=== PATIENT | female | born 1950 | race Caucasian/White ===

== ENCOUNTER 2016-05-25 23:17 | Inpatient (IN) | payer MEDICARE, BC ==
[~2016-05-25] VITALS: Ht 152.4 cm; Wt 51.0 kg
[2016-05-25] MEDS ORDERED: ALPR-340 PO (23:42)
[2016-05-25] MEDS ORDERED: DICL100G5 TP (23:42)
[2016-05-25] MEDS ORDERED: GABA-529 PO (23:42)
[2016-05-25] MEDS ORDERED: THEO100C PO (23:42)
[2016-05-25] MEDS ORDERED: MONT10TA24 PO (23:42)
[2016-05-25] MEDS ORDERED: TIOT185 IH (23:42)
[2016-05-25] MEDS ORDERED: LOSA50TA2 PO (23:42)
[2016-05-25] MEDS ORDERED: NAPR500T3 PO (23:42)
[2016-05-25] MEDS ORDERED: ASPI-1061 PO (23:42)
[2016-05-25] MEDS ORDERED: TOLT2CAP4 PO (23:42)
[2016-05-25] MEDS ORDERED: VERA-6 PO (23:42)
[2016-05-25] MEDS ORDERED: AMIT25TA9 PO (23:42)
[2016-05-26 00:26] LABS: BASOPHILS # (AUTO) 0.01 K/uL (0.00-0.20); BASOPHILS % (AUTO) 0.1 % (0.0-2.0); EOSINOPHILS # (AUTO) 0.01 K/uL (0.00-0.70); EOSINOPHILS % (AUTO) 0.14 % (1.0-6.0); HEMOGLOBIN 13.8 g/dL (12.0-16.0); LYMPHOCYTES # (AUTO) 1.5 K/uL (1.0-4.8); LYMPHOCYTES % (AUTO) 14.1 % (22.0-44.0); MEAN CORPUSCULAR HEMOGLOBIN 31.8 pg (26.0-34.0); MEAN CORPUSCULAR HGB CONC 32.8 G/dL (31.0-37.0); MEAN CORPUSCULAR VOLUME 97 fL (80-100); MONOCYTES # (AUTO) 0.9 K/uL (0.1-1.0); MONOCYTES % (AUTO) 8.4 % (2.0-9.0); NEUTROPHILS # (AUTO) 8.4 K/uL (1.8-7.7); NEUTROPHILS % (AUTO) 77.3 % (40.0-70.0); PLATELET COUNT (AUTO) 251 K/uL (150-450); RED BLOOD CELL COUNT(AUTO) 4.33 MIL/uL (4.00-5.20); RED CELL DISTRIBUTION WIDTH 12.4 % (11.5-14.5); WHITE BLOOD COUNT (AUTO) 10.8 K/uL (4.5-11.0)
[2016-05-26 00:27] LABS: APPEARANCE,URINE CLEAR (CLEAR); GLUCOSE, URINE (UA) NEGATIVE (NEGATIVE); KETONES,URINE NEGATIVE (NEGATIVE); LEUKOCYTE ESTERASE ,URINE NEGATIVE (NEGATIVE); OCCULT BLOOD,URINE NEGATIVE (NEGATIVE); PH,URINE 6.5 (5.0-8.0); PROTEIN,URINE NEGATIVE (NEGATIVE)
[2016-05-26] MEDS ORDERED: MethylPREDNISolone SOD SUCC 125 MG/2 ML VIAL IVP ONE (00:30)
[2016-05-26] MEDS ORDERED: IPRATROPIUM BROMIDE 0.5 MG/2.5 ML NEB SOLUTION NEB ONE ×2 (00:30→04:15)
[2016-05-26] MEDS ORDERED: ALBUTEROL SULFATE 2.5 MG/0.5 ML NEB SOLUTION NEB ONE (00:30)
[2016-05-26 00:38] LABS: ANION GAP 6 mmol/L (8-16); CARBON DIOXIDE 33 mmol/L (22-29); CHLORIDE 90 mmol/L (98-107); CREATININE 0.59 mg/dL (0.60-1.30); GLOMERULAR FILTR. RATE CALC > 60 mL/min (>60); POTASSIUM 3.3 mmol/L (3.5-5.1); SODIUM SERUM 129 mmol/L (136-145); UREA NITROGEN, BLOOD 12 mg/dL (7-18)
[2016-05-26 00:43] LABS: ALANINE AMINOTRANSFERASE 30 U/L (12-78); ALBUMIN 3.7 g/dL (3.4-5.0); ASPARTATE AMINOTRANSFERASE 26 U/L (15-37); BILIRUBIN,TOTAL 0.2 mg/dL (0.1-1.0); TOTAL PROTEIN, SERUM 6.7 g/dL (6.4-8.2)
[2016-05-26 00:47] LABS: RBC,URINE 0-2 /HPF (0-2); WBC,URINE 0-2 /HPF (0-5)
[2016-05-26] MEDS ORDERED: POTASSIUM CHLORIDE 20 MEQ ER TABLET PO ONE (01:15)
[2016-05-26] MEDS ORDERED: LORazepam 2 MG/ML VIAL IVP ONE (01:30)
[2016-05-26] MEDS ORDERED: ONDANSETRON HCL 4 MG/2 ML VIAL IVP ONE (01:30)
[2016-05-26] MEDS ORDERED: CefTRIAXone 1 GM/DEXTROSE 50 ML IV ONE (02:30)
[2016-05-26] MEDS ORDERED: AZITHROMYCIN 500 MG/NS 250 ML IV ONE (02:30)
[2016-05-26] MEDS ORDERED: 0.9% SODIUM CHLORIDE 10 ML SYRINGE IVP PRN ×2 (03:00→17:15)
[2016-05-26] MEDS ORDERED: ACETAMINOPHEN 325 MG TABLET PO PRN ×2 (03:00→17:15)
[2016-05-26] MEDS ORDERED: ONDANSETRON HCL 4 MG/2 ML VIAL IVP PRN (03:00)
[2016-05-26] MEDS ORDERED: ALBUTEROL SULFATE 5 MG/ML 20 ML NEB SOLN [BULK] NEB ONE (04:15)
[2016-05-26 04:55] VITALS: BP 148/99
[2016-05-26 07:23] VITALS: BP 110/61
[2016-05-26] MEDS: TIOTROPIUM BROMIDE 18 MCG/INH HANDIHALER [5] IH SCH (08:21)
[2016-05-26] MEDS: TOLTERODINE TARTRATE 2 MG ER CAPSULE PO SCH (08:23)
[2016-05-26] MEDS: GABAPENTIN 100 MG CAPSULE PO SCH ×2 (08:23→20:01)
[2016-05-26] MEDS: LOSARTAN POTASSIUM 50 MG TABLET PO SCH (08:23)
[2016-05-26] MEDS: ASPIRIN 81 MG EC TABLET PO SCH (08:23)
[2016-05-26] MEDS: MONTELUKAST SODIUM 10 MG TABLET PO SCH (08:24)
[2016-05-26] MEDS ORDERED: VERAPAMIL HCL 120 MG ER TABLET PO SCH ×2 (09:00→21:00)
[2016-05-26] MEDS ORDERED: AMITRIPTYLINE HCL 25 MG TABLET PO SCH (09:00)
[2016-05-26] MEDS: ALPRAZolam 0.25 MG TABLET PO SCH ×3 (09:14→20:01)
[2016-05-26] MEDS: IPRATROPIUM BROMIDE 0.5 MG/2.5 ML NEB SOLUTION NEB PRN ×2 (09:25→20:38)
[2016-05-26] MEDS: ALBUTEROL SULFATE 2.5 MG/0.5 ML NEB SOLUTION NEB PRN ×2 (09:25→20:38)
[2016-05-26 11:25] VITALS: BP 135/71
[2016-05-26] MEDS ORDERED: POTASSIUM CHLORIDE 20 MEQ ER TABLET PO PRN ×2 (14:00)
[2016-05-26] MEDS ORDERED: POTASSIUM CHL 10 MEQ/WATER 50 ML IV PRN (14:00)
[2016-05-26 16:11] VITALS: BP 140/72
[2016-05-26] MEDS: THEO PO SCH ×2 (17:00→17:56)
[2016-05-26] MEDS ORDERED: OxyCODONE HCL/ACETAMINOPHEN 5-325 MG TABLET PO PRN (17:15)
[2016-05-26] MEDS ORDERED: LIDOCAINE HCL/PF 1% 2 ML VIAL IM ONE (17:15)
[2016-05-26] MEDS ORDERED: CefTRIAXone SODIUM 1 GM/VIAL IM SCH (17:15)
[2016-05-26] MEDS ORDERED: MAGNESIUM HYDROXIDE SUSPENSION 30 ML UDCUP PO PRN (17:15)
[2016-05-26] MEDS: PANTOPRAZOLE SODIUM 40 MG/VIAL IVP SCH (17:56)
[2016-05-26 19:36] VITALS: BP 117/77
[2016-05-26] MEDS: OXYGEN THERAPY IH SCH (20:00)
[2016-05-26] MEDS: DOCUSATE SODIUM 100 MG CAPSULE PO SCH (20:00)
[2016-05-26] MEDS: OxyCODONE HCL/ACETAMINOPHEN 5-325 MG TABLET PO PRN (20:01)
[2016-05-26] MEDS: AMITRIPTYLINE HCL 25 MG TABLET PO SCH (20:01)
[2016-05-26 23:20] VITALS: BP 115/70
[2016-05-27] VITALS (7 sets, daily range): BP systolic 118–153; BP diastolic 72–96
[2016-05-27] MEDS ORDERED: SODIUM CHLORIDE 0.9% 50 ML ONE (00:44)
[2016-05-27] MEDS: AZITHROMYCIN 500 MG/NS 250 ML IV SCH (00:53)
[2016-05-27] MEDS: CefTRIAXone 1 GM/DEXTROSE 50 ML IV SCH (00:53)
[2016-05-27] MEDS: ONDANSETRON HCL 4 MG/2 ML VIAL IVP PRN (01:21)
[2016-05-27] MEDS: ALBUTEROL SULFATE 2.5 MG/0.5 ML NEB SOLUTION NEB PRN ×4 (06:25→23:38)
[2016-05-27] MEDS: IPRATROPIUM BROMIDE 0.5 MG/2.5 ML NEB SOLUTION NEB PRN ×4 (06:25→23:38)
[2016-05-27 06:35] LABS: BASOPHILS % (AUTO) 0.1 % (0.0-2.0); EOSINOPHILS % (AUTO) 2.4 % (1.0-6.0); HEMATOCRIT 40.8 % (36-46); HEMOGLOBIN 12.8 g/dL (12.0-16.0); LYMPHOCYTES # (AUTO) 2.5 K/uL (1.0-4.8); LYMPHOCYTES % (AUTO) 34.7 % (22.0-44.0); MEAN CORPUSCULAR HEMOGLOBIN 30.9 pg (26.0-34.0); MEAN CORPUSCULAR HGB CONC 31.5 G/dL (31.0-37.0); MEAN CORPUSCULAR VOLUME 98 fL (80-100); MONOCYTES # (AUTO) 0.7 K/uL (0.1-1.0); MONOCYTES % (AUTO) 9.7 % (2.0-9.0); NEUTROPHILS # (AUTO) 3.8 K/uL (1.8-7.7); NEUTROPHILS % (AUTO) 53.1 % (40.0-70.0); PLATELET COUNT (AUTO) 234 K/uL (150-450); RED BLOOD CELL COUNT(AUTO) 4.15 MIL/uL (4.00-5.20); RED CELL DISTRIBUTION WIDTH 12.9 % (11.5-14.5); WHITE BLOOD COUNT (AUTO) 7.2 K/uL (4.5-11.0)
[2016-05-27 08:40] LABS: ANION GAP 4 mmol/L (8-16); CALCIUM, TOTAL 8.2 mg/dL (8.8-10.5); CARBON DIOXIDE 34 mmol/L (22-29); CHLORIDE 98 mmol/L (98-107); CREATININE 0.69 mg/dL (0.60-1.30); GLOMERULAR FILTR. RATE CALC > 60 mL/min (>60); POTASSIUM 3.9 mmol/L (3.5-5.1); SODIUM SERUM 136 mmol/L (136-145); UREA NITROGEN, BLOOD 11 mg/dL (7-18)
[2016-05-27] MEDS: PANTOPRAZOLE SODIUM 40 MG/VIAL IVP SCH (08:49)
[2016-05-27] MEDS: TIOTROPIUM BROMIDE 18 MCG/INH HANDIHALER [5] IH SCH (08:49)
[2016-05-27] MEDS: MONTELUKAST SODIUM 10 MG TABLET PO SCH (08:49)
[2016-05-27] MEDS: ALPRAZolam 0.25 MG TABLET PO SCH ×2 (08:49→15:49)
[2016-05-27] MEDS: DOCUSATE SODIUM 100 MG CAPSULE PO SCH ×2 (08:50→21:56)
[2016-05-27] MEDS: ASPIRIN 81 MG EC TABLET PO SCH (08:50)
[2016-05-27] MEDS: GABAPENTIN 100 MG CAPSULE PO SCH ×2 (08:50→21:00)
[2016-05-27] MEDS: VERAPAMIL HCL 120 MG ER TABLET PO SCH (08:50)
[2016-05-27] MEDS: LOSARTAN POTASSIUM 50 MG TABLET PO SCH (08:51)
[2016-05-27] MEDS: TOLTERODINE TARTRATE 2 MG ER CAPSULE PO SCH (08:51)
[2016-05-27] MEDS: OXYGEN THERAPY IH SCH ×2 (08:54→18:38)
[2016-05-27] MEDS: THEO PO SCH (11:30)
[2016-05-27] MEDS: NICOTINE 21 MG/24 HOUR PATCH TD SCH (11:32)
[2016-05-27] MEDS: OxyCODONE HCL/ACETAMINOPHEN 5-325 MG TABLET PO PRN (16:49)
[2016-05-27] MEDS: ALPRAZolam 0.5 MG TABLET PO SCH (21:57)
[2016-05-27] MEDS: AMITRIPTYLINE HCL 25 MG TABLET PO SCH (21:57)
[2016-05-28] MEDS ORDERED: SODIUM CHLORIDE 0.9% 500 ML IV ONE (00:23)
[2016-05-28] MEDS: CefTRIAXone 1 GM/DEXTROSE 50 ML IV SCH (00:34)
[2016-05-28] MEDS: AZITHROMYCIN 500 MG/NS 250 ML IV SCH (01:38)
[2016-05-28] MEDS: ALBUTEROL SULFATE 2.5 MG/0.5 ML NEB SOLUTION NEB PRN ×5 (04:43→20:16)
[2016-05-28] MEDS: IPRATROPIUM BROMIDE 0.5 MG/2.5 ML NEB SOLUTION NEB PRN ×6 (04:43→23:13)
[2016-05-28 04:44] VITALS: BP 99/62
[2016-05-28] MEDS: ASPIRIN 81 MG EC TABLET PO SCH (08:41)
[2016-05-28] MEDS: MONTELUKAST SODIUM 10 MG TABLET PO SCH (08:41)
[2016-05-28] MEDS: PANTOPRAZOLE SODIUM 40 MG/VIAL IVP SCH (08:42)
[2016-05-28] MEDS: THEO PO SCH (08:43)
[2016-05-28] MEDS: TIOTROPIUM BROMIDE 18 MCG/INH HANDIHALER [5] IH SCH (08:44)
[2016-05-28] MEDS: DOCUSATE SODIUM 100 MG CAPSULE PO SCH ×2 (08:47→20:53)
[2016-05-28] MEDS: TOLTERODINE TARTRATE 2 MG ER CAPSULE PO SCH (08:48)
[2016-05-28] MEDS: NICOTINE 21 MG/24 HOUR PATCH TD SCH (08:48)
[2016-05-28] MEDS: GABAPENTIN 100 MG CAPSULE PO SCH ×2 (08:48→20:52)
[2016-05-28] MEDS: LOSARTAN POTASSIUM 50 MG TABLET PO SCH (08:49)
[2016-05-28] MEDS: VERAPAMIL HCL 120 MG ER TABLET PO SCH (08:49)
[2016-05-28] MEDS: OXYGEN THERAPY IH SCH ×2 (08:50→20:54)
[2016-05-28 09:00] VITALS: BP 168/107
[2016-05-28] MEDS: ALPRAZolam 0.5 MG TABLET PO SCH (09:17)
[2016-05-28 15:04] VITALS: BP 151/91
[2016-05-28] MEDS: ALPRAZolam 0.25 MG TABLET PO SCH ×2 (15:24→20:51)
[2016-05-28] MEDS ORDERED: VERA240SR PO (16:26)
[2016-05-28] MEDS: ONDANSETRON HCL 4 MG/2 ML VIAL IVP PRN (16:57)
[2016-05-28] MEDS: GLYCERIN PO PRN ×2 (17:22→22:18)
[2016-05-28 17:24] VITALS: BP 130/86
[2016-05-28 19:27] VITALS: BP 119/71
[2016-05-28] MEDS: AMITRIPTYLINE HCL 25 MG TABLET PO SCH (20:52)
[2016-05-28] MEDS: VERAPAMIL HCL 240 MG ER TABLET PO SCH (21:51)
[2016-05-28 23:30] VITALS: BP 121/63
[2016-05-29] MEDS: CefTRIAXone 1 GM/DEXTROSE 50 ML IV SCH (00:01)
[2016-05-29] MEDS: GLYCERIN PO PRN ×3 (00:48→13:24)
[2016-05-29] MEDS: AZITHROMYCIN 500 MG/NS 250 ML IV SCH (00:49)
[2016-05-29] MEDS: ALBUTEROL SULFATE 2.5 MG/0.5 ML NEB SOLUTION NEB PRN ×2 (02:50→11:41)
[2016-05-29] MEDS: IPRATROPIUM BROMIDE 0.5 MG/2.5 ML NEB SOLUTION NEB PRN ×2 (02:50→11:41)
[2016-05-29 04:44] VITALS: BP 127/59
[2016-05-29] MEDS: ALPRAZolam 0.25 MG TABLET PO SCH (05:12)
[2016-05-29 07:25] VITALS: BP 132/92
[2016-05-29] MEDS ORDERED: VERAPAMIL HCL 240 MG ER TABLET PO SCH ×2 (09:00)
[2016-05-29] MEDS: DOCUSATE SODIUM 100 MG CAPSULE PO SCH (09:00)
[2016-05-29] MEDS: PANTOPRAZOLE SODIUM 40 MG/VIAL IVP SCH (09:00)
[2016-05-29] MEDS: GABAPENTIN 100 MG CAPSULE PO SCH (10:43)
[2016-05-29] MEDS: TOLTERODINE TARTRATE 2 MG ER CAPSULE PO SCH (10:43)
[2016-05-29] MEDS: VERAPAMIL HCL 240 MG ER TABLET PO SCH (10:43)
[2016-05-29] MEDS: MONTELUKAST SODIUM 10 MG TABLET PO SCH (10:43)
[2016-05-29] MEDS: ASPIRIN 81 MG EC TABLET PO SCH (10:44)
[2016-05-29] MEDS: LOSARTAN POTASSIUM 50 MG TABLET PO SCH (10:44)
[2016-05-29] MEDS: TIOTROPIUM BROMIDE 18 MCG/INH HANDIHALER [5] IH SCH (10:44)
[2016-05-29] MEDS: NICOTINE 21 MG/24 HOUR PATCH TD SCH (10:44)
[2016-05-29 11:25] VITALS: BP 160/96
[2016-05-29] MEDS: OXYGEN THERAPY IH SCH (12:11)
[2016-05-29] MEDS: THEO PO SCH (13:21)
[2016-05-29 15:00] VITALS: BP 119/92
== END 2016-05-29 18:55 | disposition home health service (06) | DRG 189 ==
LOC: EMS 23:20 → 5S 05-26 02:15 → 6N 05-27 17:20
PROVIDERS: ADMIT Internal Medicine; ATTEND Internal Medicine
DX: J96.21 Acute and chronic respiratory failure with hypoxia (principal); J44.1 Chronic obstructive pulmonary disease with (acute) exacerbation; E87.1 Hypo-osmolality and hyponatremia; I10 Essential (primary) hypertension; E87.6 Hypokalemia; M79.7 Fibromyalgia; R07.9 Chest pain, unspecified; F17.210 Nicotine dependence, cigarettes, uncomplicated; J98.4 Other disorders of lung; F41.9 Anxiety disorder, unspecified; M19.90 Unspecified osteoarthritis, unspecified site; R00.0 Tachycardia, unspecified; Z99.81 Dependence on supplemental oxygen; Z87.01 Personal history of pneumonia (recurrent); Z88.8 Allergy status to other drugs, medicaments and biological substances; Z79.899 Other long term (current) drug therapy; Z79.82 Long term (current) use of aspirin; Z82.49 Family history of ischemic heart disease and other diseases of the circulatory system
CPT/HCPCS: 84132; 87040; 87081; 93306; 94640; 96365; 96368; 96375; 99285; C9113; J0456; J0696; J2060; J2405; J2930; J7040; J7050